=== PATIENT | female | born 1980 | race Two or more races ===

== ENCOUNTER 2018-11-14 15:53 | Emergency (ER) | payer MEDICAID, OTHER ==
[~2018-11-14] VITALS: Ht 165.1 cm; Wt 83.9 kg
[2018-11-14 16:19] VITALS: BP 139/73
[2018-11-14] MEDS ORDERED: HYDROcodone-ACET 10/325MG TAB PO ONE (19:30)
[2018-11-14] MEDS ORDERED: BACLOFEN 10 MG TAB PO ONE (19:30)
== END 2018-11-14 20:08 | disposition home or self-care (01) ==
LOC: ER 16:00
DX: R51 Headache (principal); M62.838 Other muscle spasm; M54.2 Cervicalgia; W01.198A Fall on same level from slipping, tripping and stumbling with subsequent striking against other object, initial encounter; Y93.01 Activity, walking, marching and hiking; Y99.8 Other external cause status; Y92.89 Other specified places as the place of occurrence of the external cause
CPT/HCPCS: 70450